=== PATIENT | male | born 1970 | race Caucasian/White ===

== ENCOUNTER → 2016-03-26 | Outpatient (CLI) | payer BC ==
--- NOTE | 2016-03-27 09:39 | MR ---
EXAMINATION TYPE: MR brain wo/w MR cspine wo DATE OF EXAM: 03/26/2016 7:01 AM COMPARISON: 06/19/2015 HISTORY: 45-year-old male MS, neck pain, numbness in hands TECHNIQUE: Multiplanar, multisequence images of the brain and brainstem is performed without and with 20 mL intr avenous MultiHance gadolinium contrast. Demyelinating disease protocol with additional Sagittal Flai r sequence performed. Additional multiplanar, multisequence images of the cervical spine are obtained without IV contrast. SAG PD MS sequence was added. FINDINGS: BRAIN: T2 Lesions Present : Yes Approximate Number of Lesions: Approximately 60-70 scattered small lesions. Locations Identified : Predominantly deep and periventricular though there are numerous subcortical l esions in the bifrontal regions as well. Size of Reference Lesion(s): 1. 6 x 4 mm right castle radiata lesion axial image 20. 2 7 x 6 mm, anterior left periventricular region, axial image 20. Enhancing Lesion(s) Present: No. T1 Hypointense Lesion(s) Present: Yes Change from Prior: Stable allowing for differences in measurement technique. Diffusion weighted images demonstrate no evidence of a recent infarct or other diffusion abnormality. There is no worrisome extra-axial fluid collection. The ventricular system and cisternal spaces are normal in size and appearance. The brain volume is a ge appropriate. Midline structures demonstrate normal morphology. The craniocervical junction appears within normal limits. Post contrast images demonstrate no abnormal enhancement. The dural venous sinuses appear patent. There is a stable 2.3 cm long area of increased T2 signal and enhancement within the intradiploic spa ce of the anterior right parietal calvarium, T2 axial image 23 which may represent a hemangioma, larg e venous dodge, or other benign process. Mild mucosal thickening ethmoid air cells and left frontal sinus. Globes are intact. CERVICAL SPINE: No craniocervical junction abnormality, predental space widening, or prevertebral soft tissue swellin g. There is normal alignment of the cervical spine. No suspicious bone marrow placement. There is a right paracentral disc protrusion at C6/C7 with corresponding ligamentum flavum thickening at this level. Because of the cervical lordosis is accentuated at this level, there is prominent abutment and flatte herman of the dorsal cord. Changes result in overall mild narrowing of the spinal canal. Very minimal facet degenerative changes noted throughout. Mild narrowing of the neuroforamina at C5-C 6 and C6-C7, slightly greater on the right. No high-grade foraminal narrowing is seen. No cervical cord signal abnormality is seen. No prevertebral or paravertebral soft tissue abnormality. IMPRESSION: BRAIN: 1. Stable moderate burden of small T2 bright white lesions in both cerebral hemispheres. The referenc e lesions above are not significantly changed allowing for differences in measurement technique. No n ew or enhancing lesion seen. 2. Mild chronic ethmoid and left frontal sinus disease. CERVICAL SPINE: 1. Right paracentral disc protrusion at C6-C7 with corresponding ligamentum flavum thickening here. 2. There is overall mild narrowing of the spinal canal here and because of the accentuated lordosis a t this level, there is prominent abutment and slight flattening of the dorsal cord. There is no cord compression or cord signal abnormality. 3. Additional mild facet arthropathy. Changes result in mild narrowing of the right greater than left C5-C6 and C6-C7 neuroforamina. No high-grade foraminal compromise.
== END | disposition home or self-care (01) ==
LOC: RADMRIMAIN 05:58
PROVIDERS: ATTEND Nurse Practitioner Acute Care
DX: M48.02 Spinal stenosis, cervical region (principal); M50.223 Other cervical disc displacement at C6-C7 level; M46.82 Other specified inflammatory spondylopathies, cervical region; R90.89 Other abnormal findings on diagnostic imaging of central nervous system
CPT/HCPCS: 70553; 72141; A9577

== ENCOUNTER → 2016-03-26 | Outpatient (CLI) | payer BC ==
--- NOTE | 2016-03-26 08:15 | US ---
EXAMINATION TYPE: US abdomen complete DATE OF EXAM: 03/26/2016 7:27 AM COMPARISON: 10/10/15 renal US CLINICAL HISTORY: Elevated LFTs; h/o chronic fatigue syndrome, . EXAM MEASUREMENTS: Liver Length: 15.1 cm Gallbladder Wall: 0.1 cm CBD: 0.3 cm Spleen: 11.2 cm Right Kidney: 12.2 x 6.3 x 6.6 cm Left Kidney: 8.4 x 5.3 x 5.6 cm ANATOMY: TECHNOLOGIST IMPRESSION: liver seen only in intercostal scans due to high position in ribs and overl makenna gas in system Pancreas: Obscured by bowel gas Liver: Increased attenuation, indicative of fatty infiltrate Gallbladder: no stones Evidence for sonographic Bill's sign: no CBD: Within normal limits Spleen: Within normal limits Right Kidney: No hydronephrosis or masses seen Left Kidney: two small cortical cysts, 1.4 x 1.5 x 1.6 cm and 1.6 x 1.6 x 1.4 cm. Upper IVC: Obscured by overlying bowel gas Abd Aorta: Obscured by overlying bowel gas The left renal cortical lesions appears simply cystic. Liver is normal sized but echogenic and may be fatty infiltrated. The intrahepatic portion of the IVC and proximal abdominal aorta are within normal limits. There is no evidence of cholelithiasis. Com mon bile duct is unremarkable. The visualized portions of the pancreas are homogenous. The spleen i s unremarkable. Kidneys are symmetric and free of hydronephrosis. 2 left-sided renal cysts as descri bed. IMPRESSION: 1. Probable fatty infiltration of the liver. 2. Simple appearing, left renal cysts. Normal Values: Liver Length: < 16cm wnl, 17-18cm upper limits, >18cm enlarged Spleen Length = < 13cm Renal Length = 9 - 12cm GB Wall: < 0.3cm CBD: < 0.6cm or < 1.0cm post cholecystectomy
== END | disposition home or self-care (01) ==
LOC: RADUSWWP 07:04
PROVIDERS: ATTEND Family Medicine
DX: N28.1 Cyst of kidney, acquired (principal); R10.11 Right upper quadrant pain
CPT/HCPCS: 76700

== ENCOUNTER → 2016-04-10 | Outpatient (CLI) | payer BC ==
[2016-04-10 08:50] LABS: ALT 70 U/L (21-72); AST 48 U/L (17-59); Alkaline Phosphatase 86 U/L (38-126); Anion Gap 14 mmol/L; Blood Urea Nitrogen 19 mg/dL (9-20); Calcium 9.8 mg/dL (8.4-10.2); Carbon Dioxide 24 mmol/L (22-30); Chloride 106 mmol/L (98-107); GGT 38 U/L (15-73); Glucose 95 mg/dL (74-99); Non-African American GFR(MDRD) >60 (>60 ml/min/1.73 sqM); Potassium 4.4 mmol/L (3.5-5.1); Sodium 144 mmol/L (137-145); Total Bilirubin 0.6 mg/dL (0.2-1.3); Total Protein 7.7 g/dL (6.3-8.2)
[2016-04-10 09:20] LABS: Hepatitis B Surface Ag Index 0.06
[2016-04-10 09:25] LABS: Hepatitis B Core IgM Index 0.03
[2016-04-10 09:37] LABS: Hepatitis C Virus IgG Index 0.02
[2016-04-10 09:43] LABS: Hepatitis B Surface Antibody Negative (Negative); Hepatitis C Virus IgG Ab Negative (Negative)
[2016-04-10 11:19] LABS: Iron 66 ug/dL (49-181)
[2016-04-10 11:32] LABS: % Iron Saturation 19.9 % (20-50); Total Iron Binding Capacity 331 ug/dL (261-462)
== END | disposition home or self-care (01) ==
LOC: LABWHC1 06:55
PROVIDERS: ATTEND Internal Medicine Gastroenterology
DX: R74.0 Nonspecific elevation of levels of transaminase and lactic acid dehydrogenase [LDH] (principal)
CPT/HCPCS: 36415; 80053; 82103; 82390; 82977; 83516; 83540; 83550; 83690; 86705; 86706; 86708; 86787; 86803; 87340

== ENCOUNTER → 2016-04-21 | Outpatient (CLI) | payer BC | END | disposition home or self-care (01) | LOC: LABWHC1 08:38 | PROVIDERS: ATTEND Internal Medicine | DX: E29.1 Testicular hypofunction (principal) | CPT/HCPCS: 36415; 84402; 84403 ==

== ENCOUNTER → 2016-05-15 | Outpatient (CLI) | payer BC ==
[2016-05-15 09:33] LABS: Basophils % (A) 1 %; CH 33.3; CHCM 35.1; Eosinophils # (A) 0.2 k/uL (0-0.7); Eosinophils % (A) 6 %; HCT 44.2 % (39.0-53.0); HDW 2.87; HGB 15.2 gm/dL (13.0-17.5); Luc # (Auto) 0.07; Luc % (Auto) 2; Lymphocytes # (A) 1.4 k/uL (1.0-4.8); Lymphocytes % (A) 39 %; MCH 32.9 pg (25.0-35.0); MCHC 34.5 g/dL (31.0-37.0); MCV 95.4 fL (80.0-100.0); Mean Platelet Volume 8.6; Monocytes # (A) 0.2 k/uL (0-1.0); Monocytes % (A) 5 %; Neutrophils # (A) 1.7 k/uL (1.3-7.7); Neutrophils % (A) 47 %; RBC 4.63 m/uL (4.30-5.90); RDW 13.4 % (11.5-15.5); WBC 3.7 k/uL (3.8-10.6); WBC (Perox) 3.67
[2016-05-15 09:37] LABS: Appearance,Urine Cloudy (Clear); Bilirubin,Urine Negative (Negative); Calcium Oxalate Crystals,Urine Many /hpf; Glucose,Urine (UA) Negative (Negative); Ketones,Urine Negative (Negative); Leukocyte Esterase,Urine Negative (Negative); Mucus,Urine Occasional /hpf; Nitrite,Urine Negative (Negative); Particle Count 6776; Protein,Urine 1+ (Negative); RBC,Urine 5 /hpf (0-5); Specific Gravity,Urine 1.025 (1.001-1.035); Squamous Epithelial Cell,Urine 1 /hpf (0-4); UA Billing (MACRO vs. MICRO) MICRO; WBC,Urine 3 /hpf (0-5)
[2016-05-15 09:48] LABS: ALT 76 U/L (21-72); AST 68 U/L (17-59); Alkaline Phosphatase 88 U/L (38-126); Anion Gap 11 mmol/L; Blood Urea Nitrogen 11 mg/dL (9-20); Calcium 9.5 mg/dL (8.4-10.2); Carbon Dioxide 28 mmol/L (22-30); Chloride 107 mmol/L (98-107); Glucose 116 mg/dL (74-99); Non-African American GFR(MDRD) >60 (>60 ml/min/1.73 sqM); Potassium 4.1 mmol/L (3.5-5.1); Sodium 146 mmol/L (137-145); Total Bilirubin 0.5 mg/dL (0.2-1.3); Total Protein 7.1 g/dL (6.3-8.2)
== END | disposition home or self-care (01) ==
LOC: LABWHC1 08:44
PROVIDERS: ATTEND Family Medicine
DX: D50.9 Iron deficiency anemia, unspecified (principal); E34.9 Endocrine disorder, unspecified; R74.0 Nonspecific elevation of levels of transaminase and lactic acid dehydrogenase [LDH]
CPT/HCPCS: 36415; 80053; 81001; 84402; 84403; 85025

== ENCOUNTER → 2016-05-23 | Outpatient (CLI) | payer BC ==
[2016-05-23 10:42] LABS: AST 45 U/L (17-59); Creatine Kinase 126 U/L (55-170); Glucose 100 mg/dL (74-99)
[2016-05-23 15:28] LABS: ALT 77 U/L (21-72); Alkaline Phosphatase 99 U/L (38-126); Anion Gap 13 mmol/L; Blood Urea Nitrogen 17 mg/dL (9-20); Carbon Dioxide 25 mmol/L (22-30); Chloride 106 mmol/L (98-107); Non-African American GFR(MDRD) >60 (>60 ml/min/1.73 sqM); Potassium 4.4 mmol/L (3.5-5.1); Sodium 144 mmol/L (137-145); Total Bilirubin 0.7 mg/dL (0.2-1.3); Total Protein 7.8 g/dL (6.3-8.2)
[2016-05-23 15:49] LABS: ANA w/Reflex to Titer NEGATIVE (NEGATIVE)
[2016-05-23 16:14] LABS: Treponemal Ab Non-Reactive (Non-Reactive)
[2016-05-23 17:30] LABS: Basophils % (A) 1 %; CH 33.3; Eosinophils # (A) 0.2 k/uL (0-0.7); Eosinophils % (A) 4 %; HCT 47.4 % (39.0-53.0); HDW 2.81; HGB 15.5 gm/dL (13.0-17.5); Luc % (Auto) 3; Lymphocytes # (A) 1.2 k/uL (1.0-4.8); Lymphocytes % (A) 30 %; MCH 32.2 pg (25.0-35.0); MCHC 32.7 g/dL (31.0-37.0); MCV 98.4 fL (80.0-100.0); Mean Platelet Volume 7.8; Monocytes # (A) 0.3 k/uL (0-1.0); Monocytes % (A) 6 %; Neutrophils # (A) 2.3 k/uL (1.3-7.7); Neutrophils % (A) 57 %; RBC 4.81 m/uL (4.30-5.90); RDW 13.7 % (11.5-15.5); WBC 4.1 k/uL (3.8-10.6); WBC (Perox) 4.11
[2016-05-24 05:49] LABS: Toxoplasma Antibody (IgG) <3.0 IU/mL (<7.2)
[2016-05-24 14:38] LABS: Natural Killer Cell (CD16/56) 183 cell/ul (60-500); Natural Killer Cell (CD16/56)% 14 % (3-24); Total B Cell (CD19)% 10 % (4-25); Total T Cell (CD3) 976 cell/ul (704-2138); Total T Cell (CD3)% 74 % (55-86)
[2016-05-25 22:46] LABS: Bartonella henselae Ab, IgG <1:64; Bartonella henselae Ab, IgM < 1:16
[2016-05-26 03:54] LABS: Cardiolipin Ab IgG <9.0 GPL (<15); Cardiolipin Ab IgM 11.9 MPL (<12.5)
[2016-05-26 04:43] LABS: Mycoplasma IgM Antibody 0.22 INDEX (<=0.90)
[2016-05-26 15:06] LABS: C-ANCA <1:20 Titer (<1:20); P-ANCA <1:20 Titer (<1:20)
[2016-05-26 23:02] LABS: C. pnuemoniae IgM <1:10 titer (<1:10)
[2016-05-27 14:47] LABS: Mis test requested (Blood) QFever GMA Ab
[2016-05-28 11:07] LABS: Mis test requested (Blood) Blastomyces Abs
[2016-05-28 14:34] LABS: Mis test requested (Blood) Cryptococcus Ab
[2016-05-29 22:33] LABS: Coccidiodes Antibody (CF) <1:2
== END | disposition home or self-care (01) ==
LOC: LABWHC1 09:06
PROVIDERS: ATTEND Internal Medicine Infectious Disease
DX: J32.9 Chronic sinusitis, unspecified (principal)
CPT/HCPCS: 36415; 80053; 82550; 82947; 83516; 85025; 86038; 86060; 86147; 86157; 86255; 86355; 86357; 86359; 86360; 86403; 86611; 86612; 86631; 86632; 86635; 86638; 86713; 86738; 86777; 86778; 86780

== ENCOUNTER → 2016-07-16 | Outpatient (CLI) | payer BC ==
[2016-07-16 11:45] LABS: ALT 48 U/L (21-72); AST 33 U/L (17-59); Alkaline Phosphatase 96 U/L (38-126); Anion Gap 12 mmol/L; Blood Urea Nitrogen 14 mg/dL (9-20); Calcium 9.8 mg/dL (8.4-10.2); Carbon Dioxide 27 mmol/L (22-30); Chloride 104 mmol/L (98-107); Glucose 92 mg/dL (74-99); Non-African American GFR(MDRD) >60 (>60 ml/min/1.73 sqM); Potassium 3.9 mmol/L (3.5-5.1); Sodium 143 mmol/L (137-145); Total Bilirubin 0.8 mg/dL (0.2-1.3); Total Protein 8.3 g/dL (6.3-8.2)
--- NOTE | 2016-07-16 12:02 | CT ---
EXAMINATION TYPE: CT abdomen pelvis w con DATE OF EXAM: 07/16/2016 11:40 AM COMPARISON: NONE HISTORY: R10.84 abdominal pain/elevated liver enzymes CT DLP: 1634 mGycm CONTRAST: CT scan of the abdomen and pelvis is performed patient injected with 100 mL of Omnipaque 300. FINDINGS: LUNG BASES-: No visible nodule. No infiltrate. LIVER/GB: No calcified gallstones. No space occupying hepatic lesion. Biliary tree is of normal ca liber. PANCREAS: No inflammation. No distinct mass. SPLEEN: No splenic enlargement. No lesion seen. ADRENALS: No nodule. No thickening. KIDNEYS/BLADDER: No hydronephrosis. Nonobstructing calculus lower pole left kidney. No disctinct aditi al mass. There is distention of the urinary bladder measuring 11.6 cm craniocaudal dimension. No wall thickening appreciated. BOWEL: Normal appendix. Normal bowel caliber. No inflammation. GENITAL ORGANS: No gross abnormality. LYMPH NODES: No greater than 1cm abdominal or pelvic lymph nodes are appreciated. AORTA: No significant abnormality. OSSEOUS STRUCTURES: No significant abnormality is seen. OTHER: No significant additional abnormality is seen. IMPRESSION: 1. 3 mm nonobstructing calculus lower pole left kidney. 2. Distention of the urinary bladder.
== END ==
LOC: RADPROMAIN 10:49
PROVIDERS: ATTEND Internal Medicine Gastroenterology
DX: N20.0 Calculus of kidney (principal); N32.89 Other specified disorders of bladder
CPT/HCPCS: 80053; 74177; 36415; Q9967

== ENCOUNTER → 2016-09-16 | Outpatient (CLI) | payer BC ==
[2016-09-16 08:35] LABS: Potassium 4.5 mmol/L (3.5-5.1)
[2016-09-17 05:02] LABS: Aldolase 2.8 U/L (1.2-7.6)
== END | disposition home or self-care (01) ==
LOC: LABWHC1 07:14
PROVIDERS: ATTEND Internal Medicine Infectious Disease
DX: A69.20 Lyme disease, unspecified (principal)
CPT/HCPCS: 36415; 80051; 82085; 82550; 84260

== ENCOUNTER → 2016-10-15 | Outpatient (CLI) | payer BC | END | disposition home or self-care (01) | LOC: LABWHC1 07:14 | PROVIDERS: ATTEND Internal Medicine Infectious Disease | DX: Z53.9 Procedure and treatment not carried out, unspecified reason (principal) ==

== ENCOUNTER → 2016-10-21 | Outpatient (CLI) | payer BC ==
[~2016-10-21] MED LIST: SODIUM CHLORIDE 0.9% 250 ML in EMPTY BAG 1 BAG IV PRN; SODIUM CHLORIDE 0.9% 500 ML in EMPTY BAG 1 BAG IV PRN
[2016-10-21 08:34] VITALS: BP 136/90; PULSE 100; RESP 16; TEMP 98.4
[2016-10-21 10:10] LABS: Creatine Kinase 73 U/L (55-170)
[2016-10-21 10:18] LABS: Rheumatoid Factor, Qnt <9 IU/mL (<12)
[2016-10-23 05:52] LABS: Mycoplasma IgM Antibody 0.47 INDEX (<=0.90)
[2016-10-23 17:39] LABS: C. pnuemoniae IgM <1:10 titer (<1:10)
== END | disposition home or self-care (01) ==
LOC: PROCWHC3 08:11
PROVIDERS: ATTEND Internal Medicine Infectious Disease
DX: D35.00 Benign neoplasm of unspecified adrenal gland (principal); I10 Essential (primary) hypertension
CPT/HCPCS: 36415; 82085; 82550; 84260; 86038; 86332; 86431; 86631; 86632; 86738; 99213

== ENCOUNTER → 2016-10-29 | Outpatient (CLI) | payer BC ==
--- NOTE | 2016-10-29 20:56 | MR ---
EXAMINATION TYPE: MR thoracic spine wo con DATE OF EXAM: 10/29/2016 COMPARISON: Chest x-ray January 07, 2016 HISTORY: Pain in the thoracic spine per order. Fatigue in arms and legs, numbness x 3 years, recently getting worse TECHNIQUE: Multiplanar, multisequence imaging of thoracic spine is performed without contrast FINDINGS: Spinal cord shows normal course, caliber, and signal as it courses the thoracic spine. Souleymane tebral body heights and alignment are satisfactory. Disc space heights are maintained. No large post erior disc herniations are seen on sagittal images. No significant spurring is seen. The bone marrow signal intensity is within normal limits. Review of the axial images shows no significant spinal canal stenosis or neural foraminal narrowing a t any thoracic level. IMPRESSION: No significant abnormality is seen to account for patient's symptoms.
== END | disposition home or self-care (01) ==
LOC: RADMRIMAIN 19:49
PROVIDERS: ATTEND Nurse Practitioner Acute Care
DX: M54.6 Pain in thoracic spine (principal); Z88.0 Allergy status to penicillin
CPT/HCPCS: 72146

== ENCOUNTER → 2016-11-27 | Outpatient (CLI) | payer BC ==
[2016-11-27 11:55] LABS: Gliadin AB IgG, Deaminated NEGATIVE (NEGATIVE); Gliadin AB IgG, Unit <0.4 U/mL
[2016-11-27 12:29] LABS: % Iron Saturation 27.2 % (20-50)
[2016-11-28 02:03] LABS: Toxoplasma Antibody (IgG) <3.0 IU/mL (<7.2)
[2016-11-29 19:07] LABS: R. rickettsii IgM Antibodies <1:64 titer (< 1:64); R. typhi IgM Antibodies <1:64 titer (< 1:64)
[2016-11-30 12:09] LABS: Bartonella henselae Ab, IgG <1:64; Bartonella henselae Ab, IgM < 1:16
[2016-12-01 16:16] LABS: C. pnuemoniae IgM <1:10 titer (<1:10)
[2016-12-03 02:07] LABS: Histoplasma Abs by ID None Detected (None Detected); Histoplasma Abs by Mycelia, CF <1:8 (<1:8)
[2016-12-03 07:50] LABS: Mis test requested (Non-blood) Salmonella Total Ab
[2016-12-04 10:16] LABS: Mis test requested (Blood) Coccidioides Abs CF
[2016-12-04 10:17] LABS: Mis test requested (Blood) Blastomyces Total AB
== END | disposition home or self-care (01) ==
LOC: LABWHC1 07:11
PROVIDERS: ATTEND Internal Medicine Infectious Disease
DX: A69.20 Lyme disease, unspecified (principal)
CPT/HCPCS: 36415; 82728; 83516; 83540; 83550; 83605; 86060; 86611; 86612; 86622; 86631; 86632; 86635; 86668; 86698; 86720; 86738; 86757; 86768; 86777; 86778; 87327

== ENCOUNTER → 2017-04-22 | Outpatient (CLI) | payer BC ==
[2017-04-22 18:10] LABS: Blood Urea Nitrogen 13 mg/dL (9-20)
== END | disposition home or self-care (01) ==
LOC: LABWHC1 17:08
PROVIDERS: ATTEND Psychiatry & Neurology Neurology
DX: R90.82 White matter disease, unspecified (principal); Z88.1 Allergy status to other antibiotic agents
CPT/HCPCS: 36415; 82565; 84520

== ENCOUNTER → 2017-04-23 | Outpatient (CLI) | payer BC ==
--- NOTE | 2017-04-23 21:57 | MR ---
EXAMINATION TYPE: MR brain wo/w con DATE OF EXAM: 04/23/2017 COMPARISON: Prior MRI brain June 19, 2015 HISTORY: MS, white matter changes, dizziness, TECHNIQUE: Multiplanar, multisequence images of the brain and brainstem is performed without and with IV contras t, utilizing 9 mL intravenous Gadavist gadolinium contrast is administered intravenously. Demyelinat ing disease protocol with additional Sagittal Flair sequence performed. FINDINGS: T2 Lesions Present : Yes Approximate Number of Lesions: Approximately 80-90 small scattered lesions redemonstrated. Locations Identified : Predominantly deep and periventricular Size of Reference Lesion(s): 1. 0.5 cm x 0.4 cm x 0.5 cm on axial image 20 and sagittal image 26 right frontal coronal radiata le juan felt slightly more prominent with new tiny adjacent lesions 2 0.5 cm x 0.4 cm x 0.4 cm on axial image 20 and sagittal image 9 left frontal castle radiata lesio n slightly more prominent with increasing adjacent tiny lesions Enhancing Lesion(s) Present: No T1 Hypointense Lesion(s) Present: Yes Change from Prior: Increase in number Diffusion weighted images demonstrate no evidence of a recent infarct or other diffusion abnormality. There is no worrisome extra-axial fluid collection. The ventricular system and cisternal spaces ar e normal in size and appearance. The brain volume is age appropriate. Midline structures demonstrate normal morphology. The craniocervical junction appears within normal limits. Post contrast images demonstrate no abnormal enhancement. The dural venous sinuses appear pa tent. The visualized sinuses are clear and the globes are intact. IMPRESSION: Severe white matter changes redemonstrated with new and more prominent lesions seen. No a ctive enhancing lesions noted.
== END | disposition home or self-care (01) ==
LOC: RADMRIMAIN 19:24
PROVIDERS: ATTEND Nurse Practitioner Acute Care
DX: G93.9 Disorder of brain, unspecified (principal); R90.89 Other abnormal findings on diagnostic imaging of central nervous system; Z88.0 Allergy status to penicillin
CPT/HCPCS: 70553; A9581

== ENCOUNTER → 2017-05-15 | Outpatient (CLI) | payer BC ==
[2017-05-15 08:25] LABS: T4, Free (Free Thyroxine) 0.98 ng/dL (0.78-2.19)
[2017-05-15 08:27] LABS: ALT 38 U/L (21-72); AST 27 U/L (17-59); Albumin 4.2 g/dL (3.5-5.0); Alkaline Phosphatase 93 U/L (38-126); Anion Gap 11 mmol/L; Blood Urea Nitrogen 22 mg/dL (9-20); Calcium 9.7 mg/dL (8.4-10.2); Carbon Dioxide 27 mmol/L (22-30); Chloride 106 mmol/L (98-107); Glucose 109 mg/dL (74-99); Potassium 4.1 mmol/L (3.5-5.1); Sodium 144 mmol/L (137-145); Total Bilirubin 0.5 mg/dL (0.2-1.3); Total Protein 7.1 g/dL (6.3-8.2)
== END | disposition home or self-care (01) ==
LOC: LABWHC1 07:06
PROVIDERS: ATTEND Family Medicine
DX: E07.9 Disorder of thyroid, unspecified (principal); R74.0 Nonspecific elevation of levels of transaminase and lactic acid dehydrogenase [LDH]; B37.9 Candidiasis, unspecified; R10.12 Left upper quadrant pain
CPT/HCPCS: 36415; 80053; 84436; 84439; 84479; 84480; 86255; 86628

== ENCOUNTER → 2017-06-15 | Outpatient (CLI) | payer BC ==
[2017-06-15 15:05] LABS: ALT 34 U/L (21-72); AST 41 U/L (17-59); Albumin 4.7 g/dL (3.5-5.0); Alkaline Phosphatase 88 U/L (38-126); Anion Gap 16 mmol/L; Blood Urea Nitrogen 15 mg/dL (9-20); Calcium 9.9 mg/dL (8.4-10.2); Carbon Dioxide 25 mmol/L (22-30); Chloride 104 mmol/L (98-107); Glucose 93 mg/dL (74-99); Potassium 4.2 mmol/L (3.5-5.1); Sodium 145 mmol/L (137-145); Total Bilirubin 0.8 mg/dL (0.2-1.3); Total Protein 7.9 g/dL (6.3-8.2)
[2017-06-15 15:16] LABS: T4, Free (Free Thyroxine) 1.01 ng/dL (0.78-2.19)
[2017-06-15 19:31] LABS: Total Protein,CSF 62 mg/dL (12-60)
[2017-06-15 19:58] LABS: Appearance,CSF Clear; CSF Tube Number 4
[2017-06-15 19:59] LABS: Nucleated Cells, CSF 1 u/L (0-5); Red Blood Cell,CSF 0 u/L (0-10)
[2017-06-17 12:01] LABS: IgG - CSF 4.1 mg/dL (0.0 - 3.4); IgG/Albumin Index (CSF) 0.51 (0.00 - 0.77)
== END | disposition home or self-care (01) ==
LOC: LABWHC1 14:15
PROVIDERS: ATTEND Family Medicine
DX: R90.89 Other abnormal findings on diagnostic imaging of central nervous system (principal); E03.9 Hypothyroidism, unspecified; R74.0 Nonspecific elevation of levels of transaminase and lactic acid dehydrogenase [LDH]; E34.9 Endocrine disorder, unspecified; E61.2 Magnesium deficiency; R89.1 Abnormal level of hormones in specimens from other organs, systems and tissues; G89.4 Chronic pain syndrome
CPT/HCPCS: 36415; 80053; 80327; 82040; 82042; 82672; 82784; 83001; 83002; 83735; 83873; 83916; 84157; 84402; 84403; 84439; 84443; 84481; 87476; 88108; 89050

== ENCOUNTER → 2017-07-15 | Outpatient (CLI) | payer BC ==
[2017-07-15 15:33] LABS: Immunoglobulin E 52.8 IU/mL (0.00-114.00)
== END | disposition home or self-care (01) ==
LOC: LABWHC1 07:11
PROVIDERS: ATTEND Internal Medicine Infectious Disease
DX: A69.20 Lyme disease, unspecified (principal)
CPT/HCPCS: 36415; 82784; 82785; 83883; 85300; 86157

== ENCOUNTER → 2017-08-29 | Outpatient (CLI) | payer BC ==
[2017-08-29 13:02] LABS: Cholesterol 173 mg/dL (<200); HDL Cholesterol 33 mg/dL (40-60); LDL Cholesterol,Calculated 111 mg/dL (0-99); Triglycerides 143 mg/dL (<150)
== END | disposition home or self-care (01) ==
LOC: LABWHC1 11:37
PROVIDERS: ATTEND Internal Medicine
DX: A69.20 Lyme disease, unspecified (principal); E78.4 Other hyperlipidemia
CPT/HCPCS: 36415; 80061

== ENCOUNTER → 2017-10-27 | Outpatient (CLI) | payer BC ==
--- NOTE | 2017-10-27 09:03 | MR ---
EXAMINATION TYPE: MR brain wo/w con DATE OF EXAM: 10/27/2017 COMPARISON: Prior MRI brain April 23, 2017. HISTORY: MS progress study. Acute head pain with some dizziness and right-sided hearing loss per pete ent. TECHNIQUE: Multiplanar, multisequence images of the brain and brainstem is performed without and with IV contras t, utilizing 9 mL intravenous Gadavist gadolinium contrast is administered intravenously. Demyelinat ing disease protocol with additional Sagittal Flair sequence performed. FINDINGS: T2 Lesions Present : Yes Approximate Number of Lesions: Numerous at least 60 but small scattered lesions redemonstrated Locations Identified : Predominantly deep and periventricular Size of Reference Lesion(s): 1. 0.5 cm x 0.4 cm x 0.4 cm on axial image 20 and sagittal image 12 stable left frontal coronal radi [place] lesion. Enhancing Lesion(s) Present: No T1 Hypointense Lesion(s) Present: Yes Change from Prior: Stable Diffusion weighted images demonstrate no evidence of a recent infarct or other diffusion abnormality. There is no worrisome extra-axial fluid collection. The ventricular system and cisternal spaces ar e normal in size and appearance. The brain volume is age appropriate. Midline structures demonstrate normal morphology. The craniocervical junction appears within normal limits. Post contrast images demonstrate no abnormal enhancement. Tortuous course to distal right ve rtebral artery is redemonstrated. The dural venous sinuses appear patent. Mild to moderate mucosal th ickening involving ethmoid sinuses bilaterally is more prominent versus prior. Remainder paranasal si nuses are clear. The globes are intact bilaterally. IMPRESSION: Stable moderate to severe white matter changes may be on basis of known multiple sclerosi s. No new or enhancing lesions are seen.
== END | disposition home or self-care (01) ==
LOC: RADMRIMAIN 07:24
PROVIDERS: ATTEND Nurse Practitioner Acute Care
DX: R90.82 White matter disease, unspecified (principal); G35 Multiple sclerosis
CPT/HCPCS: 70553; A9581